=== PATIENT | male | born 1945 | race Caucasian/White ===

== ENCOUNTER 2023-02-10 17:56 | Inpatient (IN) | payer OTHER ==
[~2023-02-10] VITALS: Ht 188 cm; Wt 86.3 kg
[2023-02-10 18:57] LABS: BASOPHILS ABSOLUTE AUTO 0.08 K/mm3 (0.00-0.23); BASOPHILS PERCENT AUTO 0 % (0-2); EOSINOPHILS ABSOLUTE AUTO 0.04 K/mm3 (0.00-0.68); EOSINOPHILS PERCENT AUTO 0 % (0-6); Hematocrit 35.1 % (37.0-53.0); Hemoglobin 11.5 g/dL (13.5-17.5); IMMATURE GRAN ABSOLUTE AUTO 0.32 K/mm3 (0.00-0.10); IMMATURE GRAN PERCENT AUTO 2 % (0-1); LYMPHOCYTES ABSOLUTE AUTO 1.25 K/mm3 (0.84-5.20); LYMPHOCYTES PERCENT AUTO 7 % (21-46); MONOCYTES ABSOLUTE AUTO 1.24 K/mm3 (0.16-1.47); MONOCYTES PERCENT AUTO 7 % (4-13); Mean Corpuscular HGB 30.7 pg (26.0-34.0); Mean Corpuscular HGB Conc 32.8 g/dL (31.5-36.5); Mean Corpuscular Volume 94 fL (80-100); Mean Platelet Volume 9.6 fL (9.1-12.4); NEUTROPHILS ABSOLUTE AUTO 14.96 K/mm3 (1.96-9.15); NEUTROPHILS PERCENT AUTO 84 % (41-73); Platelet Count 496 K/mm3 (150-400); RDW Coefficient Variation 13.1 % (11.7-14.2); Red Blood Cell Count 3.74 M/mm3 (4.30-5.90); White Blood Cell Count 17.89 K/mm3 (4.00-11.30)
[2023-02-10 19:26] LABS: Albumin/Globulin Ratio 0.6 (0.8-1.8); Bilirubin, Total 0.4 mg/dL (0.1-1.0); Bun/Creatinine Ratio 27.1 (12.0-20.0); Calcium, Blood 9.5 mg/dL (8.5-10.1); Creatinine, Blood 3.8 mg/dL (0.60-1.20); Globulin, Blood 4.8 g/dL (2.2-4.0); Potassium, Blood 6.1 mmol/L (3.5-5.5); Total Protein, Blood 7.8 g/dL (6.4-8.2)
[2023-02-10 21:02] LABS: Source, Urine Foley catheter
[2023-02-10 21:08] LABS: Appearance, Urine Clear (Clear); Bilirubin, Urine Neg (Neg); Blood, Urine 4+ (Neg); Color, Urine Yellow (P-Yellow); Glucose Qualitative, Urine Neg (Neg); Ketones, Urine Neg (Neg); Leukocyte Esterase, Urine 2+ (Neg); Nitrite, Urine Neg (Neg); Protein, Urine 2+ (Neg); Urobilinogen, Urine NORM (Normal)
[2023-02-10 21:14] LABS: Bacteria Mod /hpf; Squamous Epithelial Cells Rare /hpf (Few)
[2023-02-10 21:15] LABS: Renal Epithelial Rare /hpf (0-Rare)
[2023-02-10 21:59] LABS: Bun/Creatinine Ratio 27.2 (12.0-20.0); Calcium, Blood 9.5 mg/dL (8.5-10.1); Creatinine, Blood 3.83 mg/dL (0.60-1.20); Potassium, Blood 5.4 mmol/L (3.5-5.5)
[2023-02-11 01:02] VITALS: BP 111/65
--- NOTE | 2023-02-11 02:52 | NUR ---
PATIENT IS ANEW ADMIT FROM THE ED. AXOX 3 AND FOUR PERSON TRANSFER FROM [facility] TO BED. ON ROOM AIR. DENIES CHEST PAIN, SOB, AND N/V. ORIENTED TO ROOM AND CALL LIGHT SYSTEM. NS INFUSING FROM THE ED ON ARRIVAL. WCTM.
[2023-02-11 05:26] LABS: BASOPHILS ABSOLUTE AUTO 0.09 K/mm3 (0.00-0.23); BASOPHILS PERCENT AUTO 1 % (0-2); EOSINOPHILS ABSOLUTE AUTO 0.11 K/mm3 (0.00-0.68); EOSINOPHILS PERCENT AUTO 1 % (0-6); Hematocrit 31.4 % (37.0-53.0); Hemoglobin 10.3 g/dL (13.5-17.5); IMMATURE GRAN ABSOLUTE AUTO 0.25 K/mm3 (0.00-0.10); IMMATURE GRAN PERCENT AUTO 2 % (0-1); LYMPHOCYTES ABSOLUTE AUTO 1.52 K/mm3 (0.84-5.20); LYMPHOCYTES PERCENT AUTO 12 % (21-46); MONOCYTES ABSOLUTE AUTO 1.04 K/mm3 (0.16-1.47); MONOCYTES PERCENT AUTO 8 % (4-13); Mean Corpuscular HGB 30.7 pg (26.0-34.0); Mean Corpuscular HGB Conc 32.8 g/dL (31.5-36.5); Mean Corpuscular Volume 94 fL (80-100); Mean Platelet Volume 9.8 fL (9.1-12.4); NEUTROPHILS ABSOLUTE AUTO 9.39 K/mm3 (1.96-9.15); NEUTROPHILS PERCENT AUTO 76 % (41-73); Platelet Count 410 K/mm3 (150-400); RDW Coefficient Variation 13.1 % (11.7-14.2); RDW Standard Deviation 45.1 fL (35.1-46.3); Red Blood Cell Count 3.36 M/mm3 (4.30-5.90)
[2023-02-11 06:12] LABS: Albumin, Blood 2.3 g/dL (3.4-5.0); Albumin/Globulin Ratio 0.5 (0.8-1.8); Bilirubin, Total 0.2 mg/dL (0.1-1.0); Bun/Creatinine Ratio 26.7 (12.0-20.0); Calcium, Blood 8.8 mg/dL (8.5-10.1); Creatinine, Blood 3.44 mg/dL (0.60-1.20); Globulin, Blood 4.4 g/dL (2.2-4.0); Potassium, Blood 5.2 mmol/L (3.5-5.5); Total Protein, Blood 6.7 g/dL (6.4-8.2)
[2023-02-11 07:56] VITALS: BP 107/68
[2023-02-11 14:56] LABS: Albumin, Blood 2.3 g/dL (3.4-5.0); Anion Gap 7 mmol/L (6-16); Blood Urea Nitrogen 91 mg/dL (8-24); Bun/Creatinine Ratio 29.4 (12.0-20.0); CO2, Blood 20 mmol/L (21-32); Calcium, Blood 8.7 mg/dL (8.5-10.1); Chloride, Blood 106 mmol/L (98-108); Glomerular Filtration Rate 20 (60-); Glucose, Blood 152 mg/dL (70-99); Phosphorus, Blood 4.2 mg/dL (2.5-4.9); Potassium, Blood 5.3 mmol/L (3.5-5.5); Sodium, Blood 133 mmol/L (136-145)
[2023-02-11 15:59] VITALS: BP 118/68
--- NOTE | 2023-02-11 18:57 | NUR ---
SHIFT SUMMARY PT A&OX4, VSS/RA, AMB SBA W/FWW & GB-1 PP, UP TO CHAIR FOR MEALS, AMB IN ROOM AND TO BRP, VOIDING/BM TODAY, DENIES CP/PRESSURE/SOB, CHRONIC DASILVA (SELF CATHS AT HOME X 13 YEARS PER PT), TELE NSR 80s, IVF @ 75 MLS/HR AND ABX PER EMAR. WILL REPORT TO ONCABDIAS CEJA RN.
[2023-02-11 19:28] VITALS: BP 108/61
--- NOTE | 2023-02-12 04:00 | NUR ---
SHIFT SUMMERY, PT TRYING TO REST BUT IV ALARM GOING OFF FREQUENTLY AND FREQUENT TRIPS TO GET TELE TO WORK. PT STATES HE HAS BEEN HAVING DIFFICULTY GOING TO SLEEP THIS NIGHT. CALL LIGHT IN [place] BED ALARM ON.
[2023-02-12 04:22] VITALS: BP 118/61
[2023-02-12 05:10] LABS: Hemoglobin 9.6 g/dL (13.5-17.5)
[2023-02-12 06:09] LABS: Albumin, Blood 2.2 g/dL (3.4-5.0); Anion Gap 6 mmol/L (6-16); Blood Urea Nitrogen 84 mg/dL (8-24); Bun/Creatinine Ratio 29.3 (12.0-20.0); CO2, Blood 24 mmol/L (21-32); Calcium, Blood 8.7 mg/dL (8.5-10.1); Chloride, Blood 107 mmol/L (98-108); Creatinine, Blood 2.87 mg/dL (0.60-1.20); Glomerular Filtration Rate 22 (60-); Glucose, Blood 153 mg/dL (70-99); Magnesium, Blood 2.1 mg/dL (1.6-2.4); Phosphorus, Blood 3.5 mg/dL (2.5-4.9); Potassium, Blood 4.4 mmol/L (3.5-5.5); Sodium, Blood 137 mmol/L (136-145); Thyroid Stimulating Hormone 0.786 uIU/mL (0.360-4.800)
[2023-02-12 08:19] VITALS: BP 113/66
[2023-02-12] MEDS ORDERED: SODBIC650 PO (12:10)
[2023-02-12] MEDS ORDERED: VISBIOME 112.51 EACH PO (12:11)
[2023-02-12] MEDS ORDERED: CIPR250 PO (12:12)
--- NOTE | 2023-02-12 12:57 | NUR ---
DC- PT BROUGHT DOWN IN WC AND PICKED UP BY FRIEND FOR DC IN STABLE CONDITION. PT LEFT WITH ALL BELONGINGS.
== END 2023-02-12 12:23 | disposition home or self-care (01) | DRG 698 ==
LOC: ER 17:56 → MEDS 23:31 → ENPENDDIS 02-12 10:02 → MEDS 02-12 12:23
PROVIDERS: Emergency Medicine; Internal Medicine; Internal Medicine Nephrology; Student in an Organized Health Care Education/Training Program; ADMIT Internal Medicine
DX: T83.518A Infection and inflammatory reaction due to other urinary catheter, initial encounter (principal); A41.9 Sepsis, unspecified organism; R65.20 Severe sepsis without septic shock; N17.9 Acute kidney failure, unspecified; N39.0 Urinary tract infection, site not specified; E87.1 Hypo-osmolality and hyponatremia; E87.20 Acidosis, unspecified; N18.4 Chronic kidney disease, stage 4 (severe); N40.0 Benign prostatic hyperplasia without lower urinary tract symptoms; E87.5 Hyperkalemia; E86.9 Volume depletion, unspecified; B95.2 Enterococcus as the cause of diseases classified elsewhere; D63.1 Anemia in chronic kidney disease; Y84.6 Urinary catheterization as the cause of abnormal reaction of the patient, or of later complication, without mention of misadventure at the time of the procedure; F17.210 Nicotine dependence, cigarettes, uncomplicated; R94.31 Abnormal electrocardiogram [ECG] [EKG]; R31.9 Hematuria, unspecified; Z98.890 Other specified postprocedural states; Z88.8 Allergy status to other drugs, medicaments and biological substances; Z79.899 Other long term (current) drug therapy
CPT/HCPCS: 36415; 51798; 76770; 80048; 80053; 80069; 81001; 82533; 82947; 83605; 83735; 84443; 84550; 85014; 85018; 85025; 87040; 87086; 93005; 93010; 94644; 94664; 96365; 96366; 96367; 96375; 97116; 97162; 99285-25; A9270; J0295; J0612; J0696; J1644; J1815; J7030; J7070; J7799

== ENCOUNTER → 2023-02-21 | Outpatient (CLI) | payer OTHER ==
[~2023-02-21] MED LIST: CIPR250 PO; SODBIC650 PO; VISBIOME 112.51 EACH PO
[2023-02-21 19:38] LABS: Creatinine Urine 30.4 mg/dL (27.00-270.00); Microalbumin, Urine Quant. 19.7 mg/L (0.000-20.000); Protein, Urine Quantitative 23.4 mg/dL (0.0-11.9)
[2023-02-24 14:07] LABS: M-SPIKE, % Not Observed % (Not Observed); PROTEIN,TOTAL,URINE 38.6 mg/dL (Not Estab.)
== END | disposition home or self-care (01) ==
LOC: LAB SHORT 10:00 → LAB 10:00
PROVIDERS: Internal Medicine Nephrology
DX: N18.30 Chronic kidney disease, stage 3 unspecified (principal); D63.1 Anemia in chronic kidney disease; N25.81 Secondary hyperparathyroidism of renal origin; E55.9 Vitamin D deficiency, unspecified; E78.00 Pure hypercholesterolemia, unspecified; D51.8 Other vitamin B12 deficiency anemias; D52.8 Other folate deficiency anemias; D50.9 Iron deficiency anemia, unspecified; R76.9 Abnormal immunological finding in serum, unspecified; R94.5 Abnormal results of liver function studies; R94.6 Abnormal results of thyroid function studies
CPT/HCPCS: 81050; 82043; 82570; 84156; 84166; 86335

== ENCOUNTER → 2023-03-29 | Outpatient (CLI) | payer OTHER ==
[2023-03-29 14:43] LABS: Source, Urine Clean Catch
[2023-03-29 19:00] LABS: Appearance, Urine Clear (Clear); Bilirubin, Urine Neg (Neg); Blood, Urine Neg (Neg); Color, Urine Yellow (P-Yellow); Glucose Qualitative, Urine Neg (Neg); Ketones, Urine Neg (Neg); Leukocyte Esterase, Urine Neg (Neg); Nitrite, Urine Neg (Neg); Protein, Urine 2+ (Neg); Specific Gravity, Urine 1.015 (1.003-1.022); Urobilinogen, Urine NORM (Normal)
[2023-03-29 19:49] LABS: Bacteria Few /hpf; Red Blood Cells, Urine 0-2 /hpf (0-2); Squamous Epithelial Cells Rare /hpf (Few)
== END ==
LOC: LAB SHORT 14:42 → LAB 14:42
PROVIDERS: Internal Medicine Nephrology
DX: N39.0 Urinary tract infection, site not specified (principal)
CPT/HCPCS: 81001

== ENCOUNTER → 2023-10-19 | Outpatient (CLI) | payer OTHER | END | disposition home or self-care (01) | LOC: LAB 07:00 → LAB SHORT 07:00 → LAB FUT 10-17 14:40 → EDSTATUS 10-17 14:40 | DX: N18.30 Chronic kidney disease, stage 3 unspecified (principal); D63.1 Anemia in chronic kidney disease; E27.0 Other adrenocortical overactivity; N25.81 Secondary hyperparathyroidism of renal origin; E55.9 Vitamin D deficiency, unspecified; E78.00 Pure hypercholesterolemia, unspecified; R76.9 Abnormal immunological finding in serum, unspecified; R94.5 Abnormal results of liver function studies; R94.6 Abnormal results of thyroid function studies | CPT/HCPCS: 81050 ==